=== PATIENT | male | born 1965 | race Caucasian/White ===

== ENCOUNTER 2016-09-01 12:23 | Emergency (ER) | payer OTHER ==
[2016-09-01 12:42] VITALS: BP 128/80
--- NOTE | 2016-09-01 13:17 | UC ---
Hand/Wrist HPI - HPI Summary HPI Summary: RIGHT THUMB PAIN X 2 WEEKS + INJURY S/P FALL ON HIS RIGHT HAND AND HYPEREXTEND HIS RIGHT THUMB + PAIN AND SWELLING, LIMITED ROM ON FLEXION OF THE RIGHT THUMB - History Of Current Complaint Chief Complaint: UCUpperExtremity Stated Complaint: RIGHT THUMB INJURY Time Seen by Provider: 09/01/16 12:31 Hx Obtained From: Patient Onset/Duration: Sudden Onset, Lasting Weeks - 2, Still Present Severity Initially: Moderate Severity Currently: Moderate Character Of Pain: Aching, Stiffness Aggravating Factor(s): Movement Alleviating: Nothing Associated Signs And Symptoms: Positive: Swelling, Weakness. Negative: Redness , Bruising, Fever, Numbness/Tingling - Allergies/Home Medications Allergies/Adverse Reactions: Allergies Allergy/AdvReac Type Severity Reaction Status Date / Time No Known Allergies Allergy Verified 09/01/16 12:35 PMH/Surg Hx/FS Hx/Imm Hx Previously Healthy: Yes - Surgical History Surgical History: Yes Surgery Procedure, Year, and Place: Umbilical Herniorrhaphy, 1998, [facility]; hernia repair 2014 - Family History Known Family History: Negative: Diabetes - Social History Alcohol Use: Occasionally Substance Use Type: None Smoking Status (MU): Former Smoker Have You Smoked in the Last Year: No When Did the Patient Quit Smoking/Using Tobacco: 1984 Review of Systems Constitutional: Negative Skin: Negative Eyes: Negative ENT: Negative Respiratory: Negative Musculoskeletal: Other: - RIGHT THUMB PAIN All Other Systems Reviewed And Are Negative: Yes Physical Exam Triage Information Reviewed: Yes Appearance: Well-Appearing, No Pain Distress, Well-Nourished Vital Signs: Initial Vital Signs Temp 98.1 F 09/01/16 12:36 Pulse 64 09/01/16 12:36 Resp 16 09/01/16 12:36 BP 128/80 09/01/16 12:36 Pulse Ox 98 09/01/16 12:36 Vital Signs Reviewed: Yes Eyes: Positive: Conjunctiva Clear ENT: Positive: Normal ENT inspection, Hearing grossly normal, Pharynx normal Neck: Positive: Supple, Nontender, No Lymphadenopathy Respiratory: Positive: Chest non-tender, Lungs clear, Normal breath sounds Cardiovascular: Positive: RRR, No Murmur, Pulses Normal Musculoskeletal: Positive: Other: - RIGHT TUMB : + MILD SWELLING , + TENDERNESS PIP, LIMITED ROM ON FLEXION Hand/Wrist Course/Dx - Differential Dx/Diagnosis Provider Diagnoses: RIGHT THUMB SPRAIN Discharge - Discharge Plan Condition: Stable Disposition: HOME Patient Education Materials: Finger Sprain (ED) Referrals: Avtar Arrieta MD [Primary Care Provider] - If Needed
--- NOTE | 2016-09-01 13:27 | RAD ---
Indication: RIGHT thumb pain post fall 2 weeks ago. Attention proximal phalanx. Comparison: None. Technique: AP, lateral, and oblique views RIGHT thumb. Report: Negative for fracture or malalignment. Mild osteophytosis and subchondral sclerosis and cystic change at the IP joint. Minimal osteophytosis at the first metacarpal phalangeal joint. Mild nonfocal soft tissue swelling. IMPRESSION: Negative for fracture. Osteoarthritis.
== END 2016-09-01 13:49 | disposition home or self-care (01) ==
LOC: UCCORT 12:23
DX: S63.601A Unspecified sprain of right thumb, initial encounter (principal); W19.XXXA Unspecified fall, initial encounter; Y92.9 Unspecified place or not applicable; Z87.891 Personal history of nicotine dependence
CPT/HCPCS: 99212; G0463

== ENCOUNTER 2019-05-31 17:29 | Emergency (ER) | payer OTHER ==
--- OUTSIDE RECORDS SUMMARY | 2019-05-31 17:39 | XMS REPORT | Continuity of Care Document ---
:1965 External Reference #:[id number] Author Name Ivette Hernandez MD Address [address] [place] [address] Care Team Providers Name Role Phone Avtar Arrieta MD - Family Care Team Information Station Installation Supervisor Medicine Ashtyn Reed MD pc - Urology Care Team Information Station Installation Supervisor [phone] Problems Active Problems Provider Date Hydrocele Jacqueline Van M.D. Onset: 08/19/2018 Social History Type Date Description Comments Sex Unknown Tobacco Use Start: Unknown Never Smoked Cigarettes ETOH Use Uses Alcohol Daily ETOH Use consumes 1-2 glasses of wine per day Tobacco Use Start: Unknown Patient has never smoked Smoking Status Reviewed: 05/07/19 Patient has never smoked Allergies, Adverse Reactions, Alerts Description No Known Drug Allergies Medications Active Medications SIG Qnty Indications Ordering Provider Date Ibuprofen 3-4 tablets by Unknown 200mg Tablets mouth every 8 hours as needed Immunizations Description No Information Available Vital Signs Date Vital Result Comment 05/07/2019 1:12pm BP Systolic 138 mmHg BP Diastolic 74 mmHg Body Temperature 96.8 F Heart Rate 70 /min Height 72 inches 6'0" Weight 274.00 lb BMI (Body Mass Index) 37.2 kg/m2 BSA (Body Surface Area) 2.44 m2 [place] body weight in kilograms 81 kg O2 % BldC Oximetry 96 % 05/06/2019 2:44pm BP Systolic 135 mmHg BP Diastolic 79 mmHg Body Temperature 97.8 F Heart Rate 67 /min Respiratory Rate 18 /min Weight 272.38 lb O2 % BldC Oximetry 95 % Pain Level 6 Results Description No Information Available Procedures Description No Information Available Medical Devices Description No Information Available Encounters Type Date Location Provider Dx Diagnosis Office Visit 05/06/2019 [facility], M25.521 Pain in right 2:15p ANNITA Ball elbow Assessments Date Code Description Provider 05/07/2019 S46.299A Other injury of muscle, fascia and Ivette Hernandez MD tendon of other parts of biceps, unspecified arm, initial encounter 05/06/2019 M25.521 Pain in right elbow Fernanda Sheikh FNP Plan of Treatment Future Appointment(s):08/25/2019 9:00 am - Jacqueline Van M.D. at [id number] - Fernanda Sheikh, [id number] Pain in right elbowComments:We will contact ortho in hopes of getting you in to see them. They will be able to see you tomorrow at 1pm. If you are unable to tolerate the discomfort you can always go to the ED for further evaluation and treatment over night. Functional Status Description No Information Available Mental Status Description No Information Available Referrals Description No Information Available
--- OUTSIDE RECORDS SUMMARY | 2019-05-31 17:39 | XMS REPORT | Continuity of Care Document ---
:1965 External Reference #:[id number] Author Name Fernanda Sheikh FNP (transmitted by agent of provider Chloe Robertson) Address [address] [place] [address] Care Team Providers Name Role Phone Avtar Arrieta MD - Family Care Team Information Monomer Purification Operator Medicine Ashtyn Reed MD pc - Urology Care Team Information Monomer Purification Operator [phone] Problems Active Problems Provider Date Hydrocele Jacqueline [...] kg/m2 BSA (Body Surface Area) 2.44 m2 [place] body weight in kilograms 81 kg O2 [...] 9:00 am - Jacqueline Van M.D. at [id number] - Ivette Hernandez MDS46.299A Other injury of muscle, fascia and tendon of other parts of biceps, unspecified arm, initial encounterNew Xrays:MRI, Upper Extremity, Any Joint, W/O Contrast, Ordered: 05/07/19 Functional Status Description No Information Available Mental Status Description No Information Available Referrals Description No Information Available
--- OUTSIDE RECORDS SUMMARY | 2019-05-31 17:39 | XMS REPORT | Continuity of Care Document ---
:1965 External Reference #:[id number] Author Name Ivette Hernandez MD Address [address] [place] [address] Care Team Providers Name Role Phone Avtar Arrieta MD - Family Care Team Information Performance Consultant Medicine Problems Active Problems Provider Date Jacqueline Cain M.D. Onset: 08/19/2018 Social History Type Date Description Comments Sex Unknown Tobacco Use Start: Unknown Never Smoked Cigarettes ETOH Use Uses Alcohol Daily ETOH Use consumes 1-2 glasses of wine per day Tobacco Use Start: Unknown Patient has never smoked Smoking Status Reviewed: 05/18/19 Patient has never smoked Allergies, Adverse Reactions, Alerts Description No Known Drug Allergies Medications Active Medications SIG Qnty Indications Ordering Provider Date Ibuprofen 3-4 tablets by Unknown 200mg Tablets mouth every 8 hours as needed Immunizations Description No Information Available Vital Signs Date Vital Result Comment 05/18/2019 8:05am BP Systolic Sitting Left Arm 166 mmHg BP Diastolic Sitting Left Arm 93 mmHg Heart Rate 73 /min 05/07/2019 1:12pm BP Systolic 138 mmHg BP Diastolic 74 mmHg Body Temperature 96.8 F Heart Rate 70 /min Height 72 inches 6'0" Weight 274.00 lb BMI (Body Mass Index) 37.2 kg/m2 BSA (Body Surface Area) 2.44 m2 [place] body weight in kilograms 81 kg O2 % BldC Oximetry 96 % Results Description No Information Available Procedures Date Code Description Status 05/18/2019 84636 Radiology, Ankle Complete Completed Medical Devices Description No Information Available Encounters Type Date Location Provider Dx Diagnosis Office Visit 05/07/2019 Orthopaedic Office Ivette Hernandez, M25.521 Pain in right 1:00p elbow S46.291A Inj muscle, fascia and tendon of prt biceps, right arm, init Office Visit 05/06/2019 2:15p [facility], M25.521 Pain in ANNITA Ball right elbow Assessments Date Code Description Provider 05/18/2019 M76.61 Achilles tendinitis, right leg Ivette Hernandez MD 05/18/2019 S46.311D Strain of muscle, fascia and Ivette Hernandez MD tendon of triceps, right arm, subsequent encounter 05/18/2019 S86.011S Strain of right Achilles tendon, Ivette Hernandez MD sequela 05/07/2019 M25.521 Pain in right elbow Ivette Hernandez MD 05/07/2019 S46.291A Other injury of muscle, fascia and Ivette Hernandez MD tendon of other parts of biceps, right arm, initial encounter 05/06/2019 M25.521 Pain in right elbow Fernanda Sheikh FNP Plan of Treatment Future Appointment(s):08/25/2019 9:00 am - Jacqueline Van M.D. at [id number] - Ivette Hernandez, MDM76.61 Achilles tendinitis, right legS46.311D Strain of muscle, fascia and tendon of triceps, right arm, subsequent ctewrdyyeK43.011S Strain of right Achilles tendon, sequelaNew Xrays:MRI, Lower Joint Ext Any W/O Contrast, Ordered: 05/18/19 Functional Status Description No Information Available Mental Status Description No Information Available Referrals Description No Information Available
[2019-05-31 17:47] VITALS: BP 160/89
[2019-05-31] MEDS ORDERED: predniSONE TAB* 20 MG PO ONE (18:10)
--- NOTE | 2019-05-31 18:21 | UC ---
Lower Extremity/Ankle HPI - HPI Summary HPI Summary: Pt presents with concern onset of gout in left great toe. Pt has hx of gout and thinks that he is having a flare up. - History of Current Complaint Chief Complaint: UCLowerExtremity Stated Complaint: LEFT FOOT PAIN Time Seen by Provider: 05/31/19 17:48 Hx Obtained From: Patient Onset/Duration: Sudden Onset, Lasting Days, Still Present Severity Initially: Moderate Severity Currently: Moderate Pain Intensity: 7 Aggravating Factor(s): Standing, Ambulation Alleviating Factor(s): Nothing Able to Bear Weight: Yes - painful - Risk Factors Gout Risk Factors: Age Over 40, Male DVT Risk Factors: Recent Travel Septic Arthritis Risk Factor: Negative - Allergies/Home Medications Allergies/Adverse Reactions: Allergies Allergy/AdvReac Type Severity Reaction Status Date / Time No Known Allergies Allergy Verified 05/31/19 17:44 Home Medications: Home Medications Ibuprofen TAB* [Advil TAB*] 600 mg PO ONCE 05/31/19 [History Confirmed 05/31/19] PMH/Surg Hx/FS Hx/Imm Hx Previously Healthy: Yes - Surgical History Surgical History: Yes Surgery Procedure, Year, and Place: Umbilical Herniorrhaphy, 1998, [facility]. hernia repair 2014 - Family History Known Family History: Negative: Diabetes - Social History Occupation: Employed Full-time Lives: With Family Alcohol Use: Occasionally Substance Use Type: None Smoking Status (MU): Former Smoker Have You Smoked in the Last Year: No When Did the Patient Quit Smoking/Using Tobacco: 1983 - Immunization History Vaccination Up to Date: Yes Review of Systems All Other Systems Reviewed And Are Negative: Yes Constitutional: Positive: Negative Skin: Positive: Other - mild erythema to left great toe at metatarsal phalangeal joint. Eyes: Positive: Negative ENT: Positive: Negative Respiratory: Positive: Negative Cardiovascular: Positive: Negative Gastrointestinal: Positive: Negative Genitourinary: Positive: Negative Motor: Positive: Decreased ROM - pain left great toe Neurovascular: Positive: Negative Musculoskeletal: Positive: Arthralgia, Edema, Myalgia Neurological: Positive: Negative Psychological: Positive: Negative Is Patient Immunocompromised?: No Physical Exam Triage Information Reviewed: Yes Appearance: Pain Distress - with left great toe PE Vital Signs: Initial Vital Signs Temp 97.6 F 05/31/19 17:44 Pulse 69 05/31/19 17:44 Resp 16 05/31/19 17:44 BP 160/89 05/31/19 17:44 Pulse Ox 99 05/31/19 17:44 Vital Signs Reviewed: Yes Eye Exam: Normal ENT: Positive: Hearing grossly normal Dental Exam: Normal Neck exam: Normal Respiratory Exam: Normal Respiratory: Positive: No respiratory distress Musculoskeletal: Positive: Edema @ - mild swelling to left great toe at metatarsophalangeal joint Neurological Exam: Normal Psychological Exam: Normal Skin Exam: Other - mild erytheam to left great toe Lower Extremity Course/Dx - Differential Dx/Diagnosis Differential Diagnosis/HQI/PQRI: Arthritis, Gout, Infection Provider Diagnosis: Gout involving toe of left foot Discharge ED - Sign-Out/Discharge Documenting (check all that apply): Patient Departure All imaging exams completed and their final reports reviewed: No Studies - Discharge Plan Condition: Stable Disposition: HOME Prescriptions: Colchicine* [Colcrys*] 0.6 mg PO DAILY #3 tab predniSONE TAB* [Deltasone 10 MG TAB*] 30 mg PO DAILY #12 tab Patient Education Materials: Low Purine Diet (ED), Gout (ED) Referrals: Avtar Arrieta MD [Primary Care Provider] - If Needed Additional Instructions: Your prescription has been sent to the following [facility] in [place], [place]: Address: [address] [place] [address] - Billing Disposition and Condition Condition: STABLE Disposition: Home - Attestation Statements Provider Attestation: I was available for consult. This patient was seen by the DODIE. The patient was not presented to , seen by or examined by sd -Quinton Pink MD
== END 2019-05-31 18:28 | disposition home or self-care (01) ==
LOC: UCCORT 17:29
DX: M10.9 Gout, unspecified (principal); Z87.891 Personal history of nicotine dependence
CPT/HCPCS: 99212; G0463; J7512